=== PATIENT | female | born 1945 | race Caucasian/White ===

== ENCOUNTER 2023-02-04 08:45 | Inpatient (IN) | payer OTHER ==
[~2023-02-04] VITALS: Ht 157.5 cm; Wt 81.6 kg
[2023-02-04 08:45] VITALS: BP_SYST 158; PULSE 75; RESP 22; TEMP 98.3; O2SAT 98
[2023-02-04 09:52] LABS: BASOPHILS % (AUTO) 0.3 % (0.0-2.0); EOSINOPHILS # (AUTO) 0.1 K/uL (0.0-0.4); EOSINOPHILS % (AUTO) 0.8 % (0.0-4.0); HEMATOCRIT 38.5 % (36-48); HEMOGLOBIN 12.3 g/dL (12.0-16.0); LYMPHOCYTES # (AUTO) 2.9 K/uL (1.0-5.5); MEAN CORPUSCULAR HEMOGLOBIN 31 pg (27-31); MEAN CORPUSCULAR HGB CONC 32 % (32-36); MEAN CORPUSCULAR VOLUME 95 fL (79.0-98.0); MONOCYTES # (AUTO) 1.1 K/uL (0.0-1.0); MONOCYTES % (AUTO) 9.9 % (1.7-9.3); NEUTROPHILS # (AUTO) 6.9 K/uL (1.8-7.7); PLATELET COUNT (AUTO) 309 K/uL (130-430); RED BLOOD CELL COUNT(AUTO) 4.04 MIL/uL (4.2-6.2); RED CELL DISTRIBUTION WIDTH 15.5 % (9.0-15.0)
[2023-02-04 10:24] LABS: BILIRUBIN,URINE NEGATIVE (NEGATIVE); CLARITY/URINE CLEAR (CLEAR); COLOR,URINE YELLOW (YELLOW); GLUCOSE,URINE 1+ (NEGATIVE); KETONES,URINE NEGATIVE (NEGATIVE); LEUKOCYTE ESTERASE ,URINE NEGATIVE (NEGATIVE); NITRITE, URINE NEGATIVE (NEGATIVE); PH,URINE 6.5 (5.0-8.0); PROTEIN URINE NEGATIVE (NEGATIVE); UROBILINOGEN,URINE 0.2 (0.2-1.0)
[2023-02-04 10:25] LABS: PROTHROMBIN TIME 10.5 SECS (9.5-12.5)
[2023-02-04 10:29] LABS: BLOOD, URINE TRACE (NEGATIVE)
[2023-02-04 10:32] LABS: ALANINE AMINOTRANSFERASE 19 U/L (12-78); ALBUMIN 3.3 g/dL (3.4-4.8); ANION GAP 9 (5-15); ASPARTATE AMINOTRANSFERASE 22 U/L (10-37); CALCIUM 9.3 mg/dL (8.4-11.0); CARBON DIOXIDE 25 mmol/L (23-29); CHLORIDE 100 mmol/L (98-107); CREATININE 1.13 mg/dL (0.55-1.30); GLUCOSE 233 mg/dL (74-106); POTASSIUM 4.3 mmol/L (3.5-5.1); SODIUM SERUM 134 mmol/L (136-145); TOTAL BILIRUBIN 0.5 mg/dL (0.0-1.0); TOTAL PROTEIN, SERUM 7.3 g/dL (6.4-8.3); UREA NITROGEN, BLOOD 22 mg/dL (8-21)
[2023-02-04 10:42] LABS: BILIRUBIN,DIRECT 0.1 mg/dL (0.0-0.3)
[2023-02-04] MEDS ORDERED: ENOXAPARIN SODIUM 80 MG/0.8 ML SYRINGE SUBCUT ONE (11:00)
[2023-02-04] MEDS ORDERED: ASPIRIN 81 MG TAB.CHEW PO ONE (11:00)
[2023-02-04 11:10] LABS: BACTERIA,URINE None Seen /HPF (None Seen); RBC,URINE 0-3 /HPF (0-3); WBC,URINE NONE SEEN /HPF (0-3)
[2023-02-04 12:55] LABS: INFLUENZA TYPE A Negative (NEGATIVE); INFLUENZA TYPE B NEGATIVE (NEGATIVE)
[2023-02-04] MEDS ORDERED: GLIP10TA21 PO (13:11)
[2023-02-04] MEDS ORDERED: METF-379 PO (13:11)
[2023-02-04] MEDS ORDERED: OLME40TA70 PO (13:11)
[2023-02-04] MEDS ORDERED: PIOG15TA8 PO (13:11)
[2023-02-04] MEDS ORDERED: CHOL125C7 (13:11)
[2023-02-04] MEDS ORDERED: ALLO300T2 PO (13:11)
[2023-02-04] MEDS ORDERED: METO50TA7 PO (13:11)
[2023-02-04] MEDS ORDERED: LIP40 PO (13:11)
[2023-02-04] MEDS ORDERED: OMEG-158 PO (13:14)
[2023-02-04] MEDS ORDERED: INSU100I58 SQ (13:14)
[2023-02-04] MEDS ORDERED: cefTRIAXone 1 GM IVPB PREMIX 50 ML IV ONE (13:45)
[2023-02-04] MEDS ORDERED: *LOVENOX0.75MG/KG Q12H/PHARMACY XX ONE (15:30)
[2023-02-04] MEDS: hydrALAZINE HCL 20 MG/ML VIAL IVP PRN (17:56)
[2023-02-04 20:00] VITALS: BP_SYST 168; PULSE 123; RESP 20; TEMP 101.3
[2023-02-04 20:30] VITALS: O2SAT 97
[2023-02-04] MEDS ORDERED: ACETAMINOPHEN 650 MG SUPP.RECT RC PRN (22:45)
[2023-02-04] MEDS ORDERED: SODIUM CHLORIDE 3% *HI-ALERT* 500 ML IV SCH (22:45)
[2023-02-04] MEDS: ENOXAPARIN SODIUM 60 MG/0.6 ML SYRINGE SUBCUT SCH (23:15)
[2023-02-04] MEDS: INSULIN LISPRO SLIDING SCALE 100 UNITS/ML, 3 ML VIAL (humaLOG) SUBCUT PRN (23:21)
[2023-02-04] MEDS ORDERED: SODIUM CHLORIDE 3% *HI-ALERT* 500 ML IV ONE (23:37)
[2023-02-05] VITALS (11 sets, daily range): BP systolic 141–189; PULSE 114–167; RESP 16–20; TEMP 97–99.8; O2SAT 93–99
[2023-02-05] MEDS: hydrALAZINE HCL 20 MG/ML VIAL IVP PRN ×2 (00:57→14:22)
[2023-02-05] MEDS: NACL 0.9% 1,000 ML IV SCH ×2 (01:40→15:51)
[2023-02-05 05:57] LABS: BASOPHILS # (AUTO) 0.1 K/uL (0.0-0.2); BASOPHILS % (AUTO) 0.5 % (0.0-2.0); HEMATOCRIT 44.1 % (36-48); HEMOGLOBIN 14.4 g/dL (12.0-16.0); LYMPHOCYTES # (AUTO) 1.3 K/uL (1.0-5.5); LYMPHOCYTES % (AUTO) 8.9 % (20.5-51.5); MEAN CORPUSCULAR HEMOGLOBIN 30 pg (27-31); MEAN CORPUSCULAR HGB CONC 33 % (32-36); MEAN CORPUSCULAR VOLUME 93 fL (79.0-98.0); MONOCYTES # (AUTO) 0.7 K/uL (0.0-1.0); MONOCYTES % (AUTO) 4.6 % (1.7-9.3); NEUTROPHILS # (AUTO) 12.3 K/uL (1.8-7.7); PLATELET COUNT (AUTO) 372 K/uL (130-430); RED BLOOD CELL COUNT(AUTO) 4.72 MIL/uL (4.2-6.2); RED CELL DISTRIBUTION WIDTH 15.3 % (9.0-15.0); WHITE BLOOD COUNT (AUTO) 14.3 K/uL (4.8-10.8)
[2023-02-05 06:33] LABS: ALANINE AMINOTRANSFERASE 20 U/L (12-78); ALBUMIN 3.6 g/dL (3.4-4.8); ANION GAP 18 (5-15); ASPARTATE AMINOTRANSFERASE 26 U/L (10-37); CARBON DIOXIDE 19 mmol/L (23-29); CHLORIDE 91 mmol/L (98-107); CREATININE 1.13 mg/dL (0.55-1.30); GLUCOSE 384 mg/dL (74-106); POTASSIUM 3.9 mmol/L (3.5-5.1); SODIUM SERUM 128 mmol/L (136-145); TOTAL BILIRUBIN 0.7 mg/dL (0.0-1.0); TOTAL PROTEIN, SERUM 8.5 g/dL (6.4-8.3); UREA NITROGEN, BLOOD 17 mg/dL (8-21)
[2023-02-05] MEDS: INSULIN LISPRO SLIDING SCALE 100 UNITS/ML, 3 ML VIAL (humaLOG) SUBCUT PRN ×4 (06:55→23:41)
[2023-02-05 08:13] LABS: THYROID STIMULATING HORMONE 2.66 uIu/mL (0.34-4.82)
[2023-02-05] MEDS: ENOXAPARIN SODIUM 60 MG/0.6 ML SYRINGE SUBCUT SCH ×2 (08:52→23:31)
[2023-02-05] MEDS: ASPIRIN 81 MG TABLET(ECOTRIN) PO SCH (08:52)
[2023-02-05] MEDS ORDERED: cefTRIAXone 1 GM IVPB PREMIX 50 ML IV SCH (09:00)
[2023-02-05] MEDS: PIPERACILLIN/TAZO 3.375/DEX-IS 50 ML IV SCH ×3 (11:45→23:31)
[2023-02-05] MEDS ORDERED: LORazepam 2 MG/ML VIAL IM ONE ×2 (12:15→12:30)
[2023-02-05] MEDS ORDERED: OLMESARTAN MEDOXOMIL 20 MG TABLET PO SCH (12:30)
[2023-02-05] MEDS ORDERED: LOSARTAN POTASSIUM 50 MG TABLET (COZAAR) PO ONE (15:00)
[2023-02-05] MEDS ORDERED: glipiZIDE XL 5 MG TAB ( GLUCOTROL XL) PO ONE (15:00)
[2023-02-05] MEDS ORDERED: TOLVAPTAN Non-Formulary 15 MG TABLET PO ONE (15:00)
[2023-02-05] MEDS ORDERED: ALLOPURINOL 300 MG TABLET (ZYLOPRIM) PO ONE (15:00)
[2023-02-05] MEDS ORDERED: ATORVASTATIN 20 MG TABLET PO ONE (15:00)
[2023-02-05 16:01] LABS: HEMATOCRIT 43.4 % (36-48); MEAN CORPUSCULAR HEMOGLOBIN 30 pg (27-31); MEAN CORPUSCULAR HGB CONC 32 % (32-36); MEAN CORPUSCULAR VOLUME 94 fL (79.0-98.0); PLATELET COUNT (AUTO) 376 K/uL (130-430); RED BLOOD CELL COUNT(AUTO) 4.62 MIL/uL (4.2-6.2); RED CELL DISTRIBUTION WIDTH 15.5 % (9.0-15.0)
[2023-02-05] MEDS: metFORMIN HCL 500 MG TABLET PO SCH (17:17)
[2023-02-05 17:28] LABS: BAND % (MANUAL) 0 % (0-6); BASOPHILS % (MANUAL) 0 % (0-2); EOSINOPHILS % (MANUAL) 0 % (0-7); LYMPHOCYTES % (MANUAL) 6 % (20-46); MONOCYTES % (MANUAL) 15 % (0-11)
[2023-02-05 17:29] LABS: ANISOCYTOSIS 1+; OVALOCYTES FEW; PLATELET ESTIMATE ADEQUATE (ADEQUATE); STOMATOCYTES FEW
[2023-02-05] MEDS: IPRATROPIUM/ALBUTEROL SULFATE 3 ML AMPUL.NEB (DUONEB) INH SCH (19:45)
[2023-02-06] VITALS (10 sets, daily range): BP systolic 119–155; PULSE 87–114; RESP 17–20; TEMP 97.6–98.9; O2SAT 92–97
[2023-02-06] MEDS: IPRATROPIUM/ALBUTEROL SULFATE 3 ML AMPUL.NEB (DUONEB) INH SCH ×4 (01:00→20:27)
[2023-02-06 01:08] LABS: ANION GAP 12 (5-15); CALCIUM 9.7 mg/dL (8.4-11.0); CARBON DIOXIDE 24 mmol/L (23-29); CHLORIDE 97 mmol/L (98-107); CREATININE 1.41 mg/dL (0.55-1.30); GLUCOSE 335 mg/dL (74-106); POTASSIUM 3.6 mmol/L (3.5-5.1); SODIUM SERUM 133 mmol/L (136-145); UREA NITROGEN, BLOOD 29 mg/dL (8-21)
[2023-02-06 01:27] LABS: ALANINE AMINOTRANSFERASE 19 U/L (12-78); ALBUMIN 3.3 g/dL (3.4-4.8); ASPARTATE AMINOTRANSFERASE 38 U/L (10-37); TOTAL BILIRUBIN 0.7 mg/dL (0.0-1.0); TOTAL PROTEIN, SERUM 7.7 g/dL (6.4-8.3)
[2023-02-06 06:12] LABS: BASOPHILS # (AUTO) 0.2 K/uL (0.0-0.2); HEMATOCRIT 38.5 % (36-48); HEMOGLOBIN 12.7 g/dL (12.0-16.0); LYMPHOCYTES % (AUTO) 17.7 % (20.5-51.5); MEAN CORPUSCULAR HEMOGLOBIN 31 pg (27-31); MEAN CORPUSCULAR HGB CONC 33 % (32-36); MEAN CORPUSCULAR VOLUME 93 fL (79.0-98.0); MONOCYTES # (AUTO) 2.4 K/uL (0.0-1.0); NEUTROPHILS # (AUTO) 11.5 K/uL (1.8-7.7); NEUTROPHILS % (AUTO) 67.3 % (40.0-70.0); PLATELET COUNT (AUTO) 340 K/uL (130-430); RED BLOOD CELL COUNT(AUTO) 4.15 MIL/uL (4.2-6.2); RED CELL DISTRIBUTION WIDTH 15.6 % (9.0-15.0); WHITE BLOOD COUNT (AUTO) 17.2 K/uL (4.8-10.8)
[2023-02-06] MEDS: NACL 0.9% 1,000 ML IV SCH ×3 (06:34→22:56)
[2023-02-06] MEDS: PIPERACILLIN/TAZO 3.375/DEX-IS 50 ML IV SCH ×4 (06:35→23:37)
[2023-02-06] MEDS: INSULIN LISPRO SLIDING SCALE 100 UNITS/ML, 3 ML VIAL (humaLOG) SUBCUT PRN ×4 (06:49→23:33)
[2023-02-06] MEDS: metFORMIN HCL 500 MG TABLET PO SCH ×2 (08:00→17:16)
[2023-02-06] MEDS: ENOXAPARIN SODIUM 60 MG/0.6 ML SYRINGE SUBCUT SCH ×2 (08:56→21:17)
[2023-02-06] MEDS: glipiZIDE XL 5 MG TAB ( GLUCOTROL XL) PO SCH (09:00)
[2023-02-06] MEDS: PIOGLITAZONE HCL 15 MG TABLET PO SCH (09:00)
[2023-02-06] MEDS: METOPROLOL SUCCINATE 50 MG TAB.SR.24H (TOPROL XL) PO SCH (09:00)
[2023-02-06] MEDS: ALLOPURINOL 300 MG TABLET (ZYLOPRIM) PO SCH (09:00)
[2023-02-06] MEDS: ASPIRIN 81 MG TABLET(ECOTRIN) PO SCH (09:00)
[2023-02-06] MEDS: LOSARTAN POTASSIUM 50 MG TABLET (COZAAR) PO SCH (09:00)
[2023-02-06] MEDS ORDERED: ATORVASTATIN 20 MG TABLET PO SCH (21:00)
[2023-02-07] VITALS (7 sets, daily range): BP systolic 149–150; PULSE 85–105; RESP 15–24; TEMP 97.5–98.5; O2SAT 95–99
[2023-02-07] MEDS: IPRATROPIUM/ALBUTEROL SULFATE 3 ML AMPUL.NEB (DUONEB) INH SCH ×3 (01:25→13:37)
[2023-02-07] MEDS: INSULIN LISPRO SLIDING SCALE 100 UNITS/ML, 3 ML VIAL (humaLOG) SUBCUT PRN ×2 (05:45→13:14)
[2023-02-07] MEDS: PIPERACILLIN/TAZO 3.375/DEX-IS 50 ML IV SCH ×2 (05:45→12:15)
[2023-02-07 08:40] LABS: BASOPHILS # (AUTO) 0.1 K/uL (0.0-0.2); BASOPHILS % (AUTO) 0.6 % (0.0-2.0); EOSINOPHILS # (AUTO) 0.2 K/uL (0.0-0.4); EOSINOPHILS % (AUTO) 1.3 % (0.0-4.0); HEMATOCRIT 37.6 % (36-48); HEMOGLOBIN 12.2 g/dL (12.0-16.0); LYMPHOCYTES # (AUTO) 3.9 K/uL (1.0-5.5); LYMPHOCYTES % (AUTO) 26.5 % (20.5-51.5); MEAN CORPUSCULAR HEMOGLOBIN 31 pg (27-31); MEAN CORPUSCULAR HGB CONC 32 % (32-36); MEAN CORPUSCULAR VOLUME 95 fL (79.0-98.0); MONOCYTES # (AUTO) 1.6 K/uL (0.0-1.0); NEUTROPHILS # (AUTO) 8.9 K/uL (1.8-7.7); PLATELET COUNT (AUTO) 336 K/uL (130-430); RED BLOOD CELL COUNT(AUTO) 3.97 MIL/uL (4.2-6.2); RED CELL DISTRIBUTION WIDTH 15.8 % (9.0-15.0); WHITE BLOOD COUNT (AUTO) 14.7 K/uL (4.8-10.8)
[2023-02-07 08:44] LABS: NEUTROPHILS % (AUTO) 60.6 % (40.0-70.0)
[2023-02-07 08:51] LABS: ANION GAP 9 (5-15); CALCIUM 9.2 mg/dL (8.4-11.0); CARBON DIOXIDE 25 mmol/L (23-29); CHLORIDE 102 mmol/L (98-107); CREATININE 1.28 mg/dL (0.55-1.30); GLUCOSE 248 mg/dL (74-106); POTASSIUM 3.1 mmol/L (3.5-5.1); SODIUM SERUM 136 mmol/L (136-145); UREA NITROGEN, BLOOD 26 mg/dL (8-21)
[2023-02-07 08:55] LABS: ALANINE AMINOTRANSFERASE 21 U/L (12-78); ALBUMIN 3.1 g/dL (3.4-4.8); ASPARTATE AMINOTRANSFERASE 24 U/L (10-37); TOTAL BILIRUBIN 0.9 mg/dL (0.0-1.0); TOTAL PROTEIN, SERUM 7.1 g/dL (6.4-8.3)
[2023-02-07] MEDS ORDERED: glipiZIDE XL 5 MG TAB ( GLUCOTROL XL) PO ONE (08:59)
[2023-02-07] MEDS: glipiZIDE XL 5 MG TAB ( GLUCOTROL XL) PO SCH (09:00)
[2023-02-07] MEDS ORDERED: Aspirin Ec PO (11:25)
[2023-02-07] MEDS: LOSARTAN POTASSIUM 50 MG TABLET (COZAAR) PO SCH (11:29)
[2023-02-07] MEDS: ASPIRIN 81 MG TABLET(ECOTRIN) PO SCH (11:29)
[2023-02-07] MEDS: ENOXAPARIN SODIUM 60 MG/0.6 ML SYRINGE SUBCUT SCH (11:29)
[2023-02-07] MEDS ORDERED: POTASSIUM CHLORIDE 20 MEQ TABLET.ER PO ONE (11:30)
[2023-02-07] MEDS ORDERED: AUG875 PO (11:31)
[2023-02-07] MEDS: PIOGLITAZONE HCL 15 MG TABLET PO SCH (11:31)
[2023-02-07] MEDS: ALLOPURINOL 300 MG TABLET (ZYLOPRIM) PO SCH (11:31)
[2023-02-07] MEDS: METOPROLOL SUCCINATE 50 MG TAB.SR.24H (TOPROL XL) PO SCH (11:31)
[2023-02-07] MEDS: metFORMIN HCL 500 MG TABLET PO SCH (11:32)
[2023-02-07] MEDS: NACL 0.9% 1,000 ML IV SCH (12:15)
== END 2023-02-07 17:15 | disposition home health service (06) | DRG 871 ==
LOC: SED 08:45 → STU 15:18
PROVIDERS: ADMIT Specialist; ATTEND Specialist
PROC: 4A00X4Z Measurement of Central Nervous Electrical Activity, External Approach (ICD-10-PCS; principal; 2023-02-06)
DX: A41.9 Sepsis, unspecified organism (principal); I63.40 Cerebral infarction due to embolism of unspecified cerebral artery; J18.9 Pneumonia, unspecified organism; E87.1 Hypo-osmolality and hyponatremia; G81.91 Hemiplegia, unspecified affecting right dominant side; I24.89 Other forms of acute ischemic heart disease; R47.01 Aphasia; E11.40 Type 2 diabetes mellitus with diabetic neuropathy, unspecified; E03.9 Hypothyroidism, unspecified; I10 Essential (primary) hypertension; Z20.822 Contact with and (suspected) exposure to COVID-19; E78.5 Hyperlipidemia, unspecified; E66.9 Obesity, unspecified; R29.704 NIHSS score 4; D72.829 Elevated white blood cell count, unspecified; Z79.899 Other long term (current) drug therapy; Z90.710 Acquired absence of both cervix and uterus; Z79.84 Long term (current) use of oral hypoglycemic drugs; Z79.4 Long term (current) use of insulin
CPT/HCPCS: 36415; 70450-TC; 70551; 71045; 76376; 80048; 80053; 80061; 80076; 81000; 81001; 81015; 82962; 83605; 83735; 83880; 84443; 84484; 85007; 85025; 85027; 85610-TC; 85730-TC; 87040; 92610-GN; 93005; 93306; 94640; 94760; 95816; 96365; 96372; 97110-GP; 97163-GP; 97530-GP; 99291; G0378; G0482; J0360; J0696; J1650; J2060; J2543; J3490

== ENCOUNTER 2023-04-15 14:50 | Inpatient (IN) | payer OTHER ==
[~2023-04-15] VITALS: Ht 162.6 cm; Wt 86.2 kg
[~2023-04-15 14:50] MED LIST: ALLO300T2 PO; AUG875 PO; Aspirin Ec PO; CHOL125C7; GLIP10TA21 PO; INSU100I58 SQ; LIP40 PO; METF-379 PO; METO50TA7 PO; OLME40TA70 PO; OMEG-158 PO; PIOG15TA8 PO
[2023-04-15 15:17] VITALS: BP_SYST 123; PULSE 86; RESP 18; TEMP 97.6; O2SAT 96
[2023-04-15 15:57] LABS: BILIRUBIN,URINE NEGATIVE (NEGATIVE); CLARITY/URINE SL CLOUDY (CLEAR); COLOR,URINE YELLOW (YELLOW); GLUCOSE,URINE NEGATIVE (NEGATIVE); KETONES,URINE NEGATIVE (NEGATIVE); LEUKOCYTE ESTERASE ,URINE 3+ (NEGATIVE); NITRITE, URINE POSITIVE (NEGATIVE); PROTEIN URINE NEGATIVE (NEGATIVE); UROBILINOGEN,URINE 0.2 (0.2-1.0)
[2023-04-15 16:00] LABS: BLOOD, URINE TRACE (NEGATIVE)
[2023-04-15 16:09] LABS: BACTERIA,URINE MANY /HPF (None Seen); MUCUS,URINE None Seen /LPF (None Seen); RBC,URINE 0-3 /HPF (0-3); WBC,URINE >100 /HPF (0-3)
[2023-04-15 16:11] LABS: BASOPHILS # (AUTO) 0.1 K/uL (0.0-0.2); BASOPHILS % (AUTO) 1.3 % (0.0-2.0); EOSINOPHILS # (AUTO) 0.4 K/uL (0.0-0.4); EOSINOPHILS % (AUTO) 3.9 % (0.0-4.0); HEMATOCRIT 36.8 % (36-48); HEMOGLOBIN 12.3 g/dL (12.0-16.0); LYMPHOCYTES # (AUTO) 4.3 K/uL (1.0-5.5); LYMPHOCYTES % (AUTO) 40.4 % (20.5-51.5); MEAN CORPUSCULAR HEMOGLOBIN 32 pg (27-31); MEAN CORPUSCULAR HGB CONC 33 % (32-36); MEAN CORPUSCULAR VOLUME 96 fL (79.0-98.0); MONOCYTES # (AUTO) 1.3 K/uL (0.0-1.0); MONOCYTES % (AUTO) 11.7 % (1.7-9.3); NEUTROPHILS # (AUTO) 4.6 K/uL (1.8-7.7); NEUTROPHILS % (AUTO) 42.7 % (40.0-70.0); PLATELET COUNT (AUTO) 299 K/uL (130-430); RED BLOOD CELL COUNT(AUTO) 3.83 MIL/uL (4.2-6.2); RED CELL DISTRIBUTION WIDTH 16.1 % (9.0-15.0); WHITE BLOOD COUNT (AUTO) 10.7 K/uL (4.8-10.8)
[2023-04-15] MEDS ORDERED: INSU100V9 SQ (16:59)
[2023-04-15] MEDS ORDERED: LEVO100T9 PO (16:59)
[2023-04-15] MEDS ORDERED: NYST15CR36 TP (16:59)
[2023-04-15] MEDS ORDERED: AMLO10TA88 PO (16:59)
[2023-04-15] MEDS ORDERED: INSU100I28 (16:59)
[2023-04-15] MEDS ORDERED: NITR-85 PO (16:59)
[2023-04-15] MEDS ORDERED: ASPI-989 PO (17:02)
[2023-04-15] MEDS ORDERED: SEMA2PEN SUBQ (17:02)
[2023-04-15 17:39] LABS: ANION GAP 14 (5-15); CALCIUM 10.1 mg/dL (8.4-11.0); CARBON DIOXIDE 22 mmol/L (23-29); CHLORIDE 106 mmol/L (98-107); CREATININE 1.46 mg/dL (0.55-1.30); GLUCOSE 151 mg/dL (74-106); POTASSIUM 4.9 mmol/L (3.5-5.1); SODIUM SERUM 142 mmol/L (136-145); UREA NITROGEN, BLOOD 27 mg/dL (8-21)
[2023-04-15 17:44] LABS: ALANINE AMINOTRANSFERASE 23 U/L (12-78); ALBUMIN 3.8 g/dL (3.4-4.8); ASPARTATE AMINOTRANSFERASE 20 U/L (10-37); BILIRUBIN,DIRECT 0.1 mg/dL (0.0-0.3); TOTAL BILIRUBIN 0.5 mg/dL (0.0-1.0); TOTAL PROTEIN, SERUM 7.8 g/dL (6.4-8.3)
[2023-04-15] MEDS ORDERED: HYDROcodone/ACETAMIN 5-325 MG TAB (NORCO/ VICODIN) PO PRN (19:45)
[2023-04-15] MEDS ORDERED: HYDROcodone/ACETAMIN 10-325 MG TAB PO PRN (19:45)
[2023-04-15] MEDS ORDERED: ACETAMINOPHEN 325 MG TABLET PO PRN ×2 (19:45)
[2023-04-15] MEDS ORDERED: MORPHINE 2 MG/ML INJ. SYRINGE IVP PRN (19:45)
[2023-04-15] MEDS ORDERED: ONDANSETRON HCL 4 MG/2 ML VIAL IVP PRN (19:45)
[2023-04-15] MEDS ORDERED: ACETAMINOPHEN 500 MG TABLET ONE (19:48)
[2023-04-15] MEDS: ACETAMINOPHEN 500 MG TABLET PO ONE (19:58)
[2023-04-15] MEDS: MEROPENEM 1 GM IVPB PREMIX 50 ML IV ONE (19:59)
[2023-04-15] MEDS ORDERED: GLUCOSE (DEXTROSE) ORAL GEL -Adults PO PRN (20:00)
[2023-04-15] MEDS ORDERED: DEXTROSE 50% JECT 50 ML DISP.SYRIN IVP PRN (20:00)
[2023-04-15] MEDS: NACL 0.9% 1,000 ML IV ONE (20:04)
[2023-04-15 20:55] LABS: FREE T4 (FREE THYROXINE) 1.3 ng/dL (0.6-1.6); THYROID STIMULATING HORMONE 2.93 uIu/mL (0.34-4.82)
[2023-04-15] MEDS ORDERED: INSULIN REGULAR, HUMAN 10 UNITS/0.1 ML, 3 ML VIAL ONE (21:32)
[2023-04-15] MEDS: INSULIN REGULAR, HUMAN 100 UNITS/ML, 3 ML VIAL (humuLIN R) SUBCUT PRN (21:34)
[2023-04-15] MEDS: NACL 0.9% 1,000 ML IV SCH (22:40)
[2023-04-16] MEDS: MEROPENEM 1 GM IVPB PREMIX 50 ML IV SCH (04:44)
[2023-04-16 08:42] LABS: BASOPHILS % (AUTO) 0.2 % (0.0-2.0); EOSINOPHILS # (AUTO) 0.3 K/uL (0.0-0.4); EOSINOPHILS % (AUTO) 3.5 % (0.0-4.0); HEMOGLOBIN 11.4 g/dL (12.0-16.0); LYMPHOCYTES # (AUTO) 2.8 K/uL (1.0-5.5); LYMPHOCYTES % (AUTO) 33.3 % (20.5-51.5); MEAN CORPUSCULAR HEMOGLOBIN 32 pg (27-31); MEAN CORPUSCULAR HGB CONC 34 % (32-36); MEAN CORPUSCULAR VOLUME 95 fL (79.0-98.0); MONOCYTES # (AUTO) 1.2 K/uL (0.0-1.0); MONOCYTES % (AUTO) 13.8 % (1.7-9.3); NEUTROPHILS # (AUTO) 4.2 K/uL (1.8-7.7); NEUTROPHILS % (AUTO) 49.2 % (40.0-70.0); PLATELET COUNT (AUTO) 256 K/uL (130-430); RED BLOOD CELL COUNT(AUTO) 3.57 MIL/uL (4.2-6.2); RED CELL DISTRIBUTION WIDTH 16.4 % (9.0-15.0); WHITE BLOOD COUNT (AUTO) 8.5 K/uL (4.8-10.8)
[2023-04-16] MEDS ORDERED: METOPROLOL SUCCINATE 50 MG TAB.SR.24H (TOPROL XL) PO SCH (09:00)
[2023-04-16 09:10] LABS: ANION GAP 10 (5-15); CALCIUM 9.4 mg/dL (8.4-11.0); CARBON DIOXIDE 23 mmol/L (23-29); CHLORIDE 111 mmol/L (98-107); CREATININE 1.15 mg/dL (0.55-1.30); GLUCOSE 168 mg/dL (74-106); POTASSIUM 4.2 mmol/L (3.5-5.1); SODIUM SERUM 144 mmol/L (136-145); UREA NITROGEN, BLOOD 24 mg/dL (8-21)
[2023-04-16 09:11] LABS: ALANINE AMINOTRANSFERASE 21 U/L (12-78); ALBUMIN 3.2 g/dL (3.4-4.8); ASPARTATE AMINOTRANSFERASE 18 U/L (10-37); TOTAL BILIRUBIN 0.4 mg/dL (0.0-1.0); TOTAL PROTEIN, SERUM 6.8 g/dL (6.4-8.3)
[2023-04-16] MEDS: amLODIPine BESYLATE 10 MG TABLET PO SCH (10:19)
[2023-04-16] MEDS: LEVOTHYROXINE SODIUM 0.1 MG TABLET PO SCH (10:20)
[2023-04-16] MEDS: METOPROLOL SUCCINATE 50 MG TAB.SR.24H (TOPROL XL) PO SCH (10:21)
[2023-04-16] MEDS: ALLOPURINOL 300 MG TABLET (ZYLOPRIM) PO SCH (10:22)
[2023-04-16] MEDS: ATORVASTATIN 20 MG TABLET PO SCH (10:22)
[2023-04-16] MEDS ORDERED: PIOG15TA8 PO (12:07)
[2023-04-16] MEDS ORDERED: GLUCOSE (DEXTROSE) ORAL GEL -Adults PO PRN (15:00)
[2023-04-16] MEDS ORDERED: DEXTROSE 50% JECT 50 ML DISP.SYRIN IVP PRN (15:00)
[2023-04-16] MEDS: INSULIN REGULAR, HUMAN 100 UNITS/ML, 3 ML VIAL (humuLIN R) SUBCUT PRN (22:37)
[2023-04-17 01:10] VITALS: BP_SYST 159; PULSE 82; RESP 18; TEMP 97.8
[2023-04-17 01:11] VITALS: O2SAT 97
[2023-04-17 06:13] LABS: BASOPHILS # (AUTO) 0.1 K/uL (0.0-0.2); BASOPHILS % (AUTO) 1.2 % (0.0-2.0); EOSINOPHILS # (AUTO) 0.4 K/uL (0.0-0.4); EOSINOPHILS % (AUTO) 4.2 % (0.0-4.0); HEMATOCRIT 33.3 % (36-48); LYMPHOCYTES # (AUTO) 3.7 K/uL (1.0-5.5); LYMPHOCYTES % (AUTO) 42.3 % (20.5-51.5); MEAN CORPUSCULAR HEMOGLOBIN 31 pg (27-31); MEAN CORPUSCULAR HGB CONC 33 % (32-36); MEAN CORPUSCULAR VOLUME 95 fL (79.0-98.0); MONOCYTES # (AUTO) 1.2 K/uL (0.0-1.0); MONOCYTES % (AUTO) 13.3 % (1.7-9.3); NEUTROPHILS # (AUTO) 3.4 K/uL (1.8-7.7); PLATELET COUNT (AUTO) 269 K/uL (130-430); RED BLOOD CELL COUNT(AUTO) 3.53 MIL/uL (4.2-6.2); RED CELL DISTRIBUTION WIDTH 16.4 % (9.0-15.0); WHITE BLOOD COUNT (AUTO) 8.8 K/uL (4.8-10.8)
[2023-04-17 06:44] LABS: ALANINE AMINOTRANSFERASE 17 U/L (12-78); ALBUMIN 3.1 g/dL (3.4-4.8); ANION GAP 11 (5-15); ASPARTATE AMINOTRANSFERASE 17 U/L (10-37); CALCIUM 9.3 mg/dL (8.4-11.0); CARBON DIOXIDE 24 mmol/L (23-29); CHLORIDE 109 mmol/L (98-107); CREATININE 0.89 mg/dL (0.55-1.30); GLUCOSE 127 mg/dL (74-106); POTASSIUM 3.7 mmol/L (3.5-5.1); SODIUM SERUM 144 mmol/L (136-145); TOTAL BILIRUBIN 0.4 mg/dL (0.0-1.0); TOTAL PROTEIN, SERUM 6.7 g/dL (6.4-8.3); UREA NITROGEN, BLOOD 19 mg/dL (8-21)
[2023-04-17 08:00] VITALS: BP_SYST 117; PULSE 86; RESP 24; TEMP 97; O2SAT 96
[2023-04-17 11:33] VITALS: BP_SYST 133; PULSE 88; RESP 17; TEMP 97; O2SAT 96
[2023-04-17 15:33] LABS: BASOPHILS # (AUTO) 0.1 K/uL (0.0-0.2); BASOPHILS % (AUTO) 0.8 % (0.0-2.0); EOSINOPHILS # (AUTO) 0.3 K/uL (0.0-0.4); EOSINOPHILS % (AUTO) 3.6 % (0.0-4.0); HEMATOCRIT 33.7 % (36-48); HEMOGLOBIN 11.2 g/dL (12.0-16.0); LYMPHOCYTES # (AUTO) 3.2 K/uL (1.0-5.5); LYMPHOCYTES % (AUTO) 41.7 % (20.5-51.5); MEAN CORPUSCULAR HEMOGLOBIN 32 pg (27-31); MEAN CORPUSCULAR HGB CONC 33 % (32-36); MEAN CORPUSCULAR VOLUME 95 fL (79.0-98.0); MONOCYTES # (AUTO) 1.1 K/uL (0.0-1.0); NEUTROPHILS # (AUTO) 3.1 K/uL (1.8-7.7); NEUTROPHILS % (AUTO) 39.9 % (40.0-70.0); PLATELET COUNT (AUTO) 246 K/uL (130-430); RED BLOOD CELL COUNT(AUTO) 3.54 MIL/uL (4.2-6.2); RED CELL DISTRIBUTION WIDTH 16.2 % (9.0-15.0); WHITE BLOOD COUNT (AUTO) 7.8 K/uL (4.8-10.8)
[2023-04-17 15:49] LABS: ALANINE AMINOTRANSFERASE 20 U/L (12-78); ALBUMIN 3.1 g/dL (3.4-4.8); ANION GAP 10 (5-15); ASPARTATE AMINOTRANSFERASE 18 U/L (10-37); CALCIUM 9.3 mg/dL (8.4-11.0); CARBON DIOXIDE 24 mmol/L (23-29); CHLORIDE 108 mmol/L (98-107); CREATININE 1.29 mg/dL (0.55-1.30); GLUCOSE 189 mg/dL (74-106); POTASSIUM 4.3 mmol/L (3.5-5.1); SODIUM SERUM 142 mmol/L (136-145); TOTAL BILIRUBIN 0.3 mg/dL (0.0-1.0); TOTAL PROTEIN, SERUM 6.7 g/dL (6.4-8.3); UREA NITROGEN, BLOOD 19 mg/dL (8-21)
[2023-04-17 16:31] VITALS: BP_SYST 126; PULSE 81; RESP 16; TEMP 97.7; O2SAT 95
[2023-04-17 20:30] VITALS: BP_SYST 130; PULSE 82; RESP 20; TEMP 98.8; O2SAT 95
[2023-04-18] VITALS: BP_SYST 121; PULSE 86; RESP 18; TEMP 99; O2SAT 96
[2023-04-18 04:00] VITALS: BP_SYST 125; PULSE 82; RESP 18; TEMP 98.9; O2SAT 95
[2023-04-18 11:35] VITALS: BP_SYST 149; PULSE 78; RESP 16; TEMP 97.1; O2SAT 98
[2023-04-18] MEDS ORDERED: ASPI-1155 PO (12:04)
[2023-04-18 13:18] VITALS: BP_SYST 132; PULSE 83; RESP 18; TEMP 97.7; O2SAT 97
== END 2023-04-18 14:30 | disposition home health service (06) | DRG 758 ==
LOC: SED 14:50 → SMU 19:39
PROVIDERS: ADMIT Family Medicine; ATTEND Family Medicine
DX: N71.0 Acute inflammatory disease of uterus (principal); E87.20 Acidosis, unspecified; N39.0 Urinary tract infection, site not specified; Z16.20 Resistance to unspecified antibiotic; N17.9 Acute kidney failure, unspecified; E86.0 Dehydration; E66.9 Obesity, unspecified; E78.00 Pure hypercholesterolemia, unspecified; I10 Essential (primary) hypertension; Z88.8 Allergy status to other drugs, medicaments and biological substances; Z79.899 Other long term (current) drug therapy; Z79.4 Long term (current) use of insulin; Z68.32 Body mass index [BMI] 32.0-32.9, adult; Z79.82 Long term (current) use of aspirin; N18.9 Chronic kidney disease, unspecified; B96.1 Klebsiella pneumoniae [K. pneumoniae] as the cause of diseases classified elsewhere; E11.22 Type 2 diabetes mellitus with diabetic chronic kidney disease
CPT/HCPCS: 36415; 76770; 80048; 80053; 80076; 81000; 81001; 81015; 82948; 83037; 83605; 84439; 84443; 85025; 87040; 87086; 96365; 97112-GP; 97116-GP; 97530-GP; 99285; J1815; J2185

== ENCOUNTER 2023-06-03 14:04 | Inpatient (IN) | payer OTHER ==
[~2023-06-03] VITALS: Ht 162.6 cm; Wt 90.7 kg
[~2023-06-03 14:04] MED LIST changes: +AMLO10TA88 PO; +ASPI-1155 PO; -AUG875 PO; -Aspirin Ec PO; -CHOL125C7; +INSU100I28; -INSU100I58 SQ; +INSU100V9 SQ; +LEVO100T9 PO; +NYST15CR36 TP; -OMEG-158 PO; +SEMA2PEN SUBQ
[2023-06-03 14:10] VITALS: BP_SYST 167; PULSE 85; RESP 18; TEMP 97.8; O2SAT 94
[2023-06-03 14:43] LABS: ANION GAP 8 (5-15); CALCIUM 9.7 mg/dL (8.4-11.0); CARBON DIOXIDE 27 mmol/L (23-29); CHLORIDE 102 mmol/L (98-107); CREATININE 1.22 mg/dL (0.55-1.30); GLUCOSE 285 mg/dL (74-106); POTASSIUM 4.5 mmol/L (3.5-5.1); SODIUM SERUM 137 mmol/L (136-145); UREA NITROGEN, BLOOD 22 mg/dL (8-21)
[2023-06-03 15:14] LABS: PROTHROMBIN TIME 10.4 SECS (9.5-12.5)
[2023-06-03 15:18] LABS: BASOPHILS # (AUTO) 0.1 K/uL (0.0-0.2); BASOPHILS % (AUTO) 0.8 % (0.0-2.0); EOSINOPHILS # (AUTO) 0.4 K/uL (0.0-0.4); EOSINOPHILS % (AUTO) 3.8 % (0.0-4.0); HEMOGLOBIN 11.9 g/dL (12.0-16.0); LYMPHOCYTES # (AUTO) 3.7 K/uL (1.0-5.5); LYMPHOCYTES % (AUTO) 35.6 % (20.5-51.5); MEAN CORPUSCULAR HEMOGLOBIN 31 pg (27-31); MEAN CORPUSCULAR HGB CONC 33 % (32-36); MEAN CORPUSCULAR VOLUME 94 fL (79.0-98.0); MONOCYTES # (AUTO) 0.9 K/uL (0.0-1.0); MONOCYTES % (AUTO) 8.9 % (1.7-9.3); NEUTROPHILS # (AUTO) 5.2 K/uL (1.8-7.7); NEUTROPHILS % (AUTO) 50.9 % (40.0-70.0); PLATELET COUNT (AUTO) 262 K/uL (130-430); RED BLOOD CELL COUNT(AUTO) 3.85 MIL/uL (4.2-6.2); RED CELL DISTRIBUTION WIDTH 15.6 % (9.0-15.0); WHITE BLOOD COUNT (AUTO) 10.3 K/uL (4.8-10.8)
[2023-06-03] MEDS ORDERED: INSU100I44 (16:37)
[2023-06-03] MEDS ORDERED: INSU100V38 (16:37)
[2023-06-03] MEDS: hydrALAZINE HCL 20 MG/ML VIAL IVP PRN (17:44)
[2023-06-03 20:01] LABS: BILIRUBIN,URINE NEGATIVE (NEGATIVE); CLARITY/URINE CLEAR (CLEAR); COLOR,URINE YELLOW (YELLOW); GLUCOSE,URINE NEGATIVE (NEGATIVE); KETONES,URINE NEGATIVE (NEGATIVE); LEUKOCYTE ESTERASE ,URINE 3+ (NEGATIVE); NITRITE, URINE POSITIVE (NEGATIVE); PROTEIN URINE 1+ (NEGATIVE); UROBILINOGEN,URINE 0.2 (0.2-1.0)
[2023-06-03 20:03] LABS: BLOOD, URINE TRACE (NEGATIVE)
[2023-06-03 20:53] LABS: BACTERIA,URINE MANY /HPF (None Seen); RBC,URINE >100 /HPF (0-3); WBC,URINE >100 /HPF (0-3)
[2023-06-03 22:31] VITALS: BP_SYST 174; PULSE 20; RESP 16; TEMP 97.5; O2SAT 99
[2023-06-04] MEDS: MEROPENEM 1 GM in NS 100 ML IV SCH (03:00)
[2023-06-04 04:31] LABS: BASOPHILS # (AUTO) 0.1 K/uL (0.0-0.2); EOSINOPHILS # (AUTO) 0.3 K/uL (0.0-0.4); EOSINOPHILS % (AUTO) 2.7 % (0.0-4.0); HEMATOCRIT 38.4 % (36-48); HEMOGLOBIN 12.7 g/dL (12.0-16.0); LYMPHOCYTES # (AUTO) 4.9 K/uL (1.0-5.5); LYMPHOCYTES % (AUTO) 40.5 % (20.5-51.5); MEAN CORPUSCULAR HEMOGLOBIN 31 pg (27-31); MEAN CORPUSCULAR HGB CONC 33 % (32-36); MEAN CORPUSCULAR VOLUME 93 fL (79.0-98.0); MONOCYTES # (AUTO) 1.3 K/uL (0.0-1.0); MONOCYTES % (AUTO) 10.4 % (1.7-9.3); NEUTROPHILS # (AUTO) 5.5 K/uL (1.8-7.7); NEUTROPHILS % (AUTO) 45.4 % (40.0-70.0); PLATELET COUNT (AUTO) 292 K/uL (130-430); RED BLOOD CELL COUNT(AUTO) 4.12 MIL/uL (4.2-6.2); RED CELL DISTRIBUTION WIDTH 15.7 % (9.0-15.0); WHITE BLOOD COUNT (AUTO) 12.1 K/uL (4.8-10.8)
[2023-06-04 04:54] LABS: ANION GAP 13 (5-15); CALCIUM 9.5 mg/dL (8.4-11.0); CARBON DIOXIDE 25 mmol/L (23-29); CHLORIDE 104 mmol/L (98-107); CREATININE 1.08 mg/dL (0.55-1.30); GLUCOSE 173 mg/dL (74-106); POTASSIUM 3.6 mmol/L (3.5-5.1); SODIUM SERUM 142 mmol/L (136-145); UREA NITROGEN, BLOOD 19 mg/dL (8-21)
[2023-06-04] MEDS: MEROPENEM 500 MG VIAL IV ONE (05:13)
[2023-06-04 08:00] VITALS: BP_SYST 136; PULSE 118; RESP 20; TEMP 98.2; O2SAT 98
[2023-06-04 09:00] VITALS: O2SAT 98
[2023-06-04] MEDS ORDERED: GLUCOSE (DEXTROSE) ORAL GEL -Adults PO PRN (09:45)
[2023-06-04] MEDS ORDERED: DEXTROSE 50% JECT 50 ML DISP.SYRIN IVP PRN (09:45)
[2023-06-04] MEDS: ASPIRIN 81 MG TAB.CHEW PO ONE (09:47)
[2023-06-04] MEDS: LEVOTHYROXINE SODIUM 0.1 MG TABLET PO ONE (09:48)
[2023-06-04] MEDS: ATORVASTATIN 20 MG TABLET PO ONE (09:48)
[2023-06-04] MEDS: INSULIN REGULAR, HUMAN 100 UNITS/ML, 3 ML VIAL (humuLIN R) SUBCUT PRN (11:12)
[2023-06-04 12:55] VITALS: BP_SYST 147; PULSE 102; RESP 16; TEMP 97.5; O2SAT 98
[2023-06-04] MEDS ORDERED: ALLO100T PO (13:34)
[2023-06-04] MEDS ORDERED: ASPI-1155 PO (13:34)
[2023-06-04] MEDS ORDERED: INSU100I26 SQ (13:47)
[2023-06-04] MEDS ORDERED: INSU100V SUBCUT (13:47)
[2023-06-04 16:00] VITALS: BP_SYST 167; PULSE 90; RESP 16; TEMP 97.5; O2SAT 99
[2023-06-04 20:20] VITALS: BP_SYST 134; PULSE 108; RESP 18; TEMP 98.4; O2SAT 98
[2023-06-05 02:17] VITALS: BP_SYST 135; PULSE 106; RESP 19; TEMP 97.9; O2SAT 95
[2023-06-05 05:46] LABS: BASOPHILS # (AUTO) 0.1 K/uL (0.0-0.2); BASOPHILS % (AUTO) 1.1 % (0.0-2.0); EOSINOPHILS # (AUTO) 0.3 K/uL (0.0-0.4); EOSINOPHILS % (AUTO) 2.4 % (0.0-4.0); HEMATOCRIT 38.8 % (36-48); HEMOGLOBIN 12.8 g/dL (12.0-16.0); LYMPHOCYTES # (AUTO) 4.9 K/uL (1.0-5.5); LYMPHOCYTES % (AUTO) 40.8 % (20.5-51.5); MEAN CORPUSCULAR HEMOGLOBIN 31 pg (27-31); MEAN CORPUSCULAR HGB CONC 33 % (32-36); MEAN CORPUSCULAR VOLUME 93 fL (79.0-98.0); MONOCYTES # (AUTO) 1.4 K/uL (0.0-1.0); MONOCYTES % (AUTO) 11.4 % (1.7-9.3); NEUTROPHILS # (AUTO) 5.3 K/uL (1.8-7.7); NEUTROPHILS % (AUTO) 44.3 % (40.0-70.0); PLATELET COUNT (AUTO) 307 K/uL (130-430); RED BLOOD CELL COUNT(AUTO) 4.17 MIL/uL (4.2-6.2); RED CELL DISTRIBUTION WIDTH 15.4 % (9.0-15.0)
[2023-06-05 06:20] LABS: ALANINE AMINOTRANSFERASE 13 U/L (12-78); ALBUMIN 3.3 g/dL (3.4-4.8); ANION GAP 11 (5-15); ASPARTATE AMINOTRANSFERASE 11 U/L (10-37); CALCIUM 9.3 mg/dL (8.4-11.0); CARBON DIOXIDE 24 mmol/L (23-29); CHLORIDE 102 mmol/L (98-107); CREATININE 1.22 mg/dL (0.55-1.30); GLUCOSE 172 mg/dL (74-106); POTASSIUM 3.7 mmol/L (3.5-5.1); SODIUM SERUM 137 mmol/L (136-145); TOTAL BILIRUBIN 0.4 mg/dL (0.0-1.0); TOTAL PROTEIN, SERUM 7.2 g/dL (6.4-8.3); UREA NITROGEN, BLOOD 25 mg/dL (8-21)
[2023-06-05] MEDS: LEVOTHYROXINE SODIUM 0.1 MG TABLET PO SCH (06:22)
[2023-06-05 08:00] VITALS: BP_SYST 166; PULSE 104; RESP 18; TEMP 97.7; O2SAT 98
[2023-06-05] MEDS: ASPIRIN 81 MG TAB.CHEW PO SCH (08:56)
[2023-06-05] MEDS: ALLOPURINOL 100 MG TABLET (ZYLOPRIM) PO SCH (08:56)
[2023-06-05] MEDS: ATORVASTATIN 20 MG TABLET PO SCH (08:57)
[2023-06-05] MEDS ORDERED: ALLOPURINOL 300 MG TABLET (ZYLOPRIM) PO SCH (09:00)
[2023-06-05 11:05] VITALS: BP_SYST 130; PULSE 105; RESP 17; TEMP 97.8; O2SAT 94
[2023-06-05 16:18] VITALS: BP_SYST 129; PULSE 103; RESP 16; TEMP 97.6; O2SAT 94
[2023-06-05 21:05] VITALS: BP_SYST 139; PULSE 97; RESP 19; TEMP 97.4; O2SAT 100
[2023-06-05 23:46] VITALS: BP_SYST 136; PULSE 95; RESP 16; TEMP 96.8; O2SAT 95
[2023-06-06 08:00] VITALS: BP_SYST 153; PULSE 98; RESP 18; TEMP 97; O2SAT 95; O2SAT 97
[2023-06-06 10:39] LABS: PROTHROMBIN TIME 10.4 SECS (9.5-12.5)
[2023-06-06 12:00] VITALS: BP_SYST 144; PULSE 85; RESP 18; TEMP 98.6; O2SAT 96
[2023-06-06 15:36] VITALS: BP_SYST 142; PULSE 88; RESP 18; TEMP 98.5; O2SAT 99
[2023-06-06 16:00] VITALS: BP_SYST 138; PULSE 79; RESP 18; TEMP 98; O2SAT 97
== END 2023-06-06 16:55 | disposition home or self-care (01) | DRG 689 ==
LOC: SED 14:04 → SMU 16:52
PROVIDERS: ADMIT Specialist; ATTEND Specialist
PROC: 02HV33Z Insertion of Infusion Device into Superior Vena Cava, Percutaneous Approach (ICD-10-PCS; principal; 2023-06-06)
DX: N39.0 Urinary tract infection, site not specified (principal); G92.9 Unspecified toxic encephalopathy; Z16.12 Extended spectrum beta lactamase (ESBL) resistance; R65.10 Systemic inflammatory response syndrome (SIRS) of non-infectious origin without acute organ dysfunction; G45.9 Transient cerebral ischemic attack, unspecified; E03.9 Hypothyroidism, unspecified; I10 Essential (primary) hypertension; E11.65 Type 2 diabetes mellitus with hyperglycemia; F03.A0 Unspecified dementia, mild, without behavioral disturbance, psychotic disturbance, mood disturbance, and anxiety; E78.5 Hyperlipidemia, unspecified; Z88.8 Allergy status to other drugs, medicaments and biological substances; Z79.899 Other long term (current) drug therapy; Z86.73 Personal history of transient ischemic attack (TIA), and cerebral infarction without residual deficits
CPT/HCPCS: 36415; 70450-TC; 70551; 71045; 76770; 80048; 80053; 81000; 81001; 81015; 82948; 83037; 84484; 85025; 85610; 85730; 87086; 87186; 93005; 95816; 96374; 97110-GP; 97112-GP; 97116-GP; 97530-GP; 99285; J0360; J2185

== ENCOUNTER 2023-07-10 19:28 | Inpatient (IN) | payer OTHER ==
[~2023-07-10] VITALS: Ht 157.5 cm; Wt 90.7 kg
[~2023-07-10 19:28] MED LIST changes: +ALLO100T PO; -ALLO300T2 PO; +INSU100I26 SQ; -INSU100I28; +INSU100V SUBCUT; -INSU100V9 SQ; -NYST15CR36 TP; -SEMA2PEN SUBQ
[2023-07-10 19:40] VITALS: BP_SYST 183; PULSE 78; RESP 16; TEMP 97.9; O2SAT 97
[2023-07-10] MEDS: MORPHINE 4 MG INJ. 4 MG/ML VIAL IVP ONE (23:08)
[2023-07-10] MEDS ORDERED: ONDANSETRON HCL 4 MG/2 ML VIAL IVP PRN (23:15)
[2023-07-10] MEDS ORDERED: ACETAMINOPHEN 325 MG TABLET PO PRN (23:15)
[2023-07-10] MEDS ORDERED: ALBUTEROL SULFATE 0.083% 2.5 MG/3 ML VIAL.NEB INH PRN (23:15)
[2023-07-10] MEDS ORDERED: HYDROcodone/ACETAMIN 5-325 MG TAB (NORCO/ VICODIN) PO PRN (23:15)
[2023-07-10] MEDS ORDERED: hydrALAZINE HCL 20 MG/ML VIAL IVP SCH (23:15)
[2023-07-10 23:21] VITALS: BP_SYST 183; PULSE 76; O2SAT 97
[2023-07-10 23:42] LABS: BASOPHILS # (AUTO) 0.2 K/uL (0.0-0.2); BASOPHILS % (AUTO) 1.4 % (0.0-2.0); EOSINOPHILS # (AUTO) 0.1 K/uL (0.0-0.4); EOSINOPHILS % (AUTO) 0.4 % (0.0-4.0); HEMOGLOBIN 11.7 g/dL (12.0-16.0); LYMPHOCYTES # (AUTO) 3.8 K/uL (1.0-5.5); LYMPHOCYTES % (AUTO) 25.9 % (20.5-51.5); MEAN CORPUSCULAR HEMOGLOBIN 30 pg (27-31); MEAN CORPUSCULAR HGB CONC 33 % (32-36); MEAN CORPUSCULAR VOLUME 93 fL (79.0-98.0); MONOCYTES # (AUTO) 1.2 K/uL (0.0-1.0); MONOCYTES % (AUTO) 8.3 % (1.7-9.3); NEUTROPHILS # (AUTO) 9.4 K/uL (1.8-7.7); PLATELET COUNT (AUTO) 269 K/uL (130-430); RED BLOOD CELL COUNT(AUTO) 3.85 MIL/uL (4.2-6.2); RED CELL DISTRIBUTION WIDTH 15.8 % (9.0-15.0); WHITE BLOOD COUNT (AUTO) 14.7 K/uL (4.8-10.8)
[2023-07-10] MEDS: amLODIPine BESYLATE 10 MG TABLET PO SCH (23:55)
[2023-07-11 00:28] LABS: ANION GAP 15 (5-15); CALCIUM 9.4 mg/dL (8.4-11.0); CARBON DIOXIDE 20 mmol/L (23-29); CHLORIDE 106 mmol/L (98-107); CREATININE 1.13 mg/dL (0.55-1.30); GLUCOSE 222 mg/dL (74-106); POTASSIUM 4.6 mmol/L (3.5-5.1); SODIUM SERUM 141 mmol/L (136-145); UREA NITROGEN, BLOOD 18 mg/dL (8-21)
[2023-07-11] MEDS: MORPHINE 2 MG/ML INJ. SYRINGE IVP PRN (03:46)
[2023-07-11 05:54] LABS: BASOPHILS # (AUTO) 0.1 K/uL (0.0-0.2); BASOPHILS % (AUTO) 0.9 % (0.0-2.0); EOSINOPHILS # (AUTO) 0.2 K/uL (0.0-0.4); EOSINOPHILS % (AUTO) 1.8 % (0.0-4.0); HEMOGLOBIN 10.8 g/dL (12.0-16.0); LYMPHOCYTES % (AUTO) 31.6 % (20.5-51.5); MEAN CORPUSCULAR HEMOGLOBIN 30 pg (27-31); MEAN CORPUSCULAR HGB CONC 33 % (32-36); MEAN CORPUSCULAR VOLUME 93 fL (79.0-98.0); MONOCYTES # (AUTO) 1.4 K/uL (0.0-1.0); MONOCYTES % (AUTO) 11.3 % (1.7-9.3); NEUTROPHILS # (AUTO) 6.9 K/uL (1.8-7.7); NEUTROPHILS % (AUTO) 54.4 % (40.0-70.0); PLATELET COUNT (AUTO) 283 K/uL (130-430); RED BLOOD CELL COUNT(AUTO) 3.56 MIL/uL (4.2-6.2); RED CELL DISTRIBUTION WIDTH 15.5 % (9.0-15.0); WHITE BLOOD COUNT (AUTO) 12.7 K/uL (4.8-10.8)
[2023-07-11 06:14] LABS: ALANINE AMINOTRANSFERASE 17 U/L (12-78); ALBUMIN 2.9 g/dL (3.4-4.8); ANION GAP 13 (5-15); ASPARTATE AMINOTRANSFERASE 16 U/L (10-37); CALCIUM 8.9 mg/dL (8.4-11.0); CARBON DIOXIDE 24 mmol/L (23-29); CHLORIDE 107 mmol/L (98-107); CREATININE 1.03 mg/dL (0.55-1.30); GLUCOSE 174 mg/dL (74-106); POTASSIUM 4.3 mmol/L (3.5-5.1); SODIUM SERUM 144 mmol/L (136-145); TOTAL BILIRUBIN 0.4 mg/dL (0.0-1.0); TOTAL PROTEIN, SERUM 6.8 g/dL (6.4-8.3); UREA NITROGEN, BLOOD 14 mg/dL (8-21)
[2023-07-11] MEDS ORDERED: LEVOTHYROXINE SODIUM 0.1 MG TABLET PO SCH ×2 (07:30)
[2023-07-11] MEDS ORDERED: METOPROLOL SUCCINATE 50 MG TAB.SR.24H (TOPROL XL) PO SCH (09:00)
[2023-07-11] MEDS ORDERED: ATORVASTATIN 20 MG TABLET PO SCH (09:00)
[2023-07-11] MEDS: LEVOTHYROXINE SODIUM 0.1 MG TABLET PO SCH (09:58)
[2023-07-11] MEDS: ATORVASTATIN 20 MG TABLET PO SCH (09:58)
[2023-07-11] MEDS: METOPROLOL SUCCINATE 50 MG TAB.SR.24H (TOPROL XL) PO SCH (09:58)
[2023-07-11] MEDS: MORPHINE 4 MG INJ. 4 MG/ML VIAL ONE (15:19)
[2023-07-11 16:32] VITALS: O2SAT 98
[2023-07-11] MEDS: MORPHINE 4 MG INJ. 4 MG/ML VIAL IVP PRN (16:33)
[2023-07-11 17:40] VITALS: BP_SYST 147; PULSE 75; RESP 18; TEMP 98.2
[2023-07-11] MEDS: INSULIN REGULAR, HUMAN 100 UNITS/ML, 3 ML VIAL (humuLIN R) SUBCUT PRN (20:31)
[2023-07-12 00:48] VITALS: BP_SYST 151; PULSE 89; RESP 16; TEMP 99.1
[2023-07-12 06:56] LABS: BASOPHILS # (AUTO) 0.2 K/uL (0.0-0.2); BASOPHILS % (AUTO) 1.2 % (0.0-2.0); EOSINOPHILS # (AUTO) 0.3 K/uL (0.0-0.4); EOSINOPHILS % (AUTO) 2.3 % (0.0-4.0); HEMATOCRIT 31.8 % (36-48); HEMOGLOBIN 10.5 g/dL (12.0-16.0); LYMPHOCYTES # (AUTO) 4.4 K/uL (1.0-5.5); LYMPHOCYTES % (AUTO) 35.1 % (20.5-51.5); MEAN CORPUSCULAR HEMOGLOBIN 31 pg (27-31); MEAN CORPUSCULAR HGB CONC 33 % (32-36); MEAN CORPUSCULAR VOLUME 93 fL (79.0-98.0); MONOCYTES # (AUTO) 1.4 K/uL (0.0-1.0); MONOCYTES % (AUTO) 10.9 % (1.7-9.3); NEUTROPHILS # (AUTO) 6.4 K/uL (1.8-7.7); NEUTROPHILS % (AUTO) 50.5 % (40.0-70.0); PLATELET COUNT (AUTO) 283 K/uL (130-430); RED BLOOD CELL COUNT(AUTO) 3.44 MIL/uL (4.2-6.2); RED CELL DISTRIBUTION WIDTH 15.5 % (9.0-15.0); WHITE BLOOD COUNT (AUTO) 12.6 K/uL (4.8-10.8)
[2023-07-12 07:15] LABS: ALANINE AMINOTRANSFERASE 15 U/L (12-78); ALBUMIN 2.8 g/dL (3.4-4.8); ANION GAP 11 (5-15); ASPARTATE AMINOTRANSFERASE 10 U/L (10-37); CALCIUM 8.7 mg/dL (8.4-11.0); CARBON DIOXIDE 24 mmol/L (23-29); CHLORIDE 106 mmol/L (98-107); CREATININE 1.05 mg/dL (0.55-1.30); GLUCOSE 198 mg/dL (74-106); POTASSIUM 4.3 mmol/L (3.5-5.1); SODIUM SERUM 141 mmol/L (136-145); TOTAL BILIRUBIN 0.4 mg/dL (0.0-1.0); TOTAL PROTEIN, SERUM 6.7 g/dL (6.4-8.3); UREA NITROGEN, BLOOD 19 mg/dL (8-21)
[2023-07-12 08:15] VITALS: BP_SYST 151; PULSE 87; RESP 20; TEMP 98; O2SAT 95
[2023-07-12] MEDS ORDERED: ceFAZolin SODIUM 1 GM VIAL ONE (08:21)
[2023-07-12] MEDS: ACETAMINOPHEN I.V. 1000 MG 100 ML IV ONE ×2 (09:45→10:40)
[2023-07-12] MEDS ORDERED: ONDANSETRON HCL 4 MG/2 ML VIAL IVP PRN (09:45)
[2023-07-12] MEDS ORDERED: HYDROmorphone 1 MG/ML INJ. CARTRIDGE IVP PRN (09:45)
[2023-07-12] MEDS ORDERED: hydrALAZINE HCL 20 MG/ML VIAL IVP PRN (09:45)
[2023-07-12] MEDS ORDERED: NALOXONE HCL 0.4 MG/ML AMP (NARCAN) IVP PRN ×2 (09:45→10:45)
[2023-07-12] MEDS ORDERED: METOCLOPRAMIDE HCL 10 MG/2 ML VIAL IVP PRN (09:45)
[2023-07-12] MEDS ORDERED: MORPHINE 4 MG INJ. 4 MG/ML VIAL IVP PRN (09:45)
[2023-07-12] MEDS ORDERED: oxyCODONE HCL 5 MG TABLET PO PRN (10:45)
[2023-07-12 12:15] VITALS: BP_SYST 128; PULSE 80; RESP 16; TEMP 97.7; O2SAT 95
[2023-07-12] MEDS: CEFAZOLIN 2 GM IVPB PREMIX 50 ML IV SCH (14:23)
[2023-07-12 15:48] VITALS: BP_SYST 120; PULSE 69; RESP 15; TEMP 97.7; O2SAT 98
[2023-07-12 15:52] VITALS: O2SAT 96
[2023-07-12 20:00] VITALS: BP_SYST 145; PULSE 90; RESP 18; TEMP 96.2; O2SAT 96
[2023-07-12] MEDS: INSULIN GLARGINE 100 UNITS/ML, 10 ML VIAL SUBCUT SCH (22:56)
[2023-07-12] MEDS: HYDROcodone/ACETAMIN 5-325 MG TAB (NORCO/ VICODIN) PO PRN (23:05)
[2023-07-13 00:35] VITALS: BP_SYST 149; PULSE 80; RESP 18; TEMP 97.8; O2SAT 96
[2023-07-13 06:36] LABS: BASOPHILS % (AUTO) 0.2 % (0.0-2.0); HEMATOCRIT 28.9 % (36-48); HEMOGLOBIN 9.6 g/dL (12.0-16.0); LYMPHOCYTES # (AUTO) 2.6 K/uL (1.0-5.5); LYMPHOCYTES % (AUTO) 17.6 % (20.5-51.5); MEAN CORPUSCULAR HEMOGLOBIN 31 pg (27-31); MEAN CORPUSCULAR HGB CONC 33 % (32-36); MEAN CORPUSCULAR VOLUME 93 fL (79.0-98.0); MONOCYTES # (AUTO) 1.5 K/uL (0.0-1.0); MONOCYTES % (AUTO) 10.2 % (1.7-9.3); NEUTROPHILS # (AUTO) 10.5 K/uL (1.8-7.7); PLATELET COUNT (AUTO) 252 K/uL (130-430); RED CELL DISTRIBUTION WIDTH 15.6 % (9.0-15.0); WHITE BLOOD COUNT (AUTO) 14.6 K/uL (4.8-10.8)
[2023-07-13 07:11] LABS: ALANINE AMINOTRANSFERASE 8 U/L (12-78); ALBUMIN 2.6 g/dL (3.4-4.8); ANION GAP 11 (5-15); ASPARTATE AMINOTRANSFERASE 14 U/L (10-37); CALCIUM 8.7 mg/dL (8.4-11.0); CARBON DIOXIDE 24 mmol/L (23-29); CHLORIDE 104 mmol/L (98-107); CREATININE 1.34 mg/dL (0.55-1.30); GLUCOSE 247 mg/dL (74-106); POTASSIUM 4.7 mmol/L (3.5-5.1); SODIUM SERUM 139 mmol/L (136-145); TOTAL BILIRUBIN 0.3 mg/dL (0.0-1.0); TOTAL PROTEIN, SERUM 6.4 g/dL (6.4-8.3); UREA NITROGEN, BLOOD 29 mg/dL (8-21)
[2023-07-13 08:20] VITALS: BP_SYST 136; PULSE 72; RESP 18; TEMP 96.8; O2SAT 97
[2023-07-13 09:00] VITALS: O2SAT 97
[2023-07-13] MEDS: ASPIRIN 81 MG TABLET(ECOTRIN) PO SCH (09:18)
[2023-07-13 10:59] VITALS: BP_SYST 122; PULSE 87; RESP 18; TEMP 97.3; O2SAT 95
[2023-07-13 15:17] VITALS: BP_SYST 139; PULSE 86; RESP 18; TEMP 97.8; O2SAT 95
[2023-07-13 17:03] LABS: BILIRUBIN,URINE NEGATIVE (NEGATIVE); CLARITY/URINE SL CLOUDY (CLEAR); COLOR,URINE YELLOW (YELLOW); GLUCOSE,URINE 3+ (NEGATIVE); KETONES,URINE TRACE (NEGATIVE); LEUKOCYTE ESTERASE ,URINE 1+ (NEGATIVE); NITRITE, URINE NEGATIVE (NEGATIVE); PROTEIN URINE TRACE (NEGATIVE); UROBILINOGEN,URINE 0.2 (0.2-1.0)
[2023-07-13 17:12] LABS: BLOOD, URINE TRACE (NEGATIVE)
[2023-07-13 17:33] LABS: WBC,URINE 80-100 /HPF (0-3)
[2023-07-13 17:34] LABS: BACTERIA,URINE None Seen /HPF (None Seen)
[2023-07-13 17:35] LABS: MUCUS,URINE 1+ /LPF (None Seen); YEAST,URINE Moderate /HPF (None Seen)
[2023-07-13] MEDS: INSULIN GLARGINE 100 UNITS/ML, 10 ML VIAL SUBCUT SCH (20:11)
[2023-07-14] VITALS (10 sets, daily range): BP systolic 125–178; PULSE 82–105; RESP 16–19; TEMP 96.8–99.1; O2SAT 95–97
[2023-07-14] MEDS: hydrALAZINE HCL 20 MG/ML VIAL IVP SCH (00:02)
[2023-07-14 05:42] LABS: BASOPHILS # (AUTO) 0.1 K/uL (0.0-0.2); BASOPHILS % (AUTO) 0.8 % (0.0-2.0); EOSINOPHILS # (AUTO) 0.2 K/uL (0.0-0.4); EOSINOPHILS % (AUTO) 1.2 % (0.0-4.0); HEMATOCRIT 28.1 % (36-48); HEMOGLOBIN 9.4 g/dL (12.0-16.0); LYMPHOCYTES # (AUTO) 4.4 K/uL (1.0-5.5); LYMPHOCYTES % (AUTO) 30.3 % (20.5-51.5); MEAN CORPUSCULAR HEMOGLOBIN 31 pg (27-31); MEAN CORPUSCULAR HGB CONC 34 % (32-36); MEAN CORPUSCULAR VOLUME 92 fL (79.0-98.0); MONOCYTES # (AUTO) 1.6 K/uL (0.0-1.0); NEUTROPHILS # (AUTO) 8.3 K/uL (1.8-7.7); NEUTROPHILS % (AUTO) 56.7 % (40.0-70.0); PLATELET COUNT (AUTO) 284 K/uL (130-430); RED BLOOD CELL COUNT(AUTO) 3.05 MIL/uL (4.2-6.2); RED CELL DISTRIBUTION WIDTH 15.5 % (9.0-15.0)
[2023-07-14 06:17] LABS: ALBUMIN 2.7 g/dL (3.4-4.8); ANION GAP 14 (5-15); ASPARTATE AMINOTRANSFERASE 18 U/L (10-37); CALCIUM 8.4 mg/dL (8.4-11.0); CARBON DIOXIDE 21 mmol/L (23-29); CHLORIDE 104 mmol/L (98-107); CREATININE 1.22 mg/dL (0.55-1.30); GLUCOSE 260 mg/dL (74-106); POTASSIUM 3.8 mmol/L (3.5-5.1); SODIUM SERUM 139 mmol/L (136-145); TOTAL PROTEIN, SERUM 6.7 g/dL (6.4-8.3); UREA NITROGEN, BLOOD 28 mg/dL (8-21)
[2023-07-14 07:50] LABS: WHITE BLOOD COUNT (AUTO) 14.6 K/uL (4.8-10.8)
[2023-07-14 07:54] LABS: ALANINE AMINOTRANSFERASE 12 U/L (12-78)
[2023-07-14 07:57] LABS: TOTAL BILIRUBIN 0.5 mg/dL (0.0-1.0)
[2023-07-14] MEDS: HYDROcodone/ACETAMIN 10-325 MG TAB PO PRN (11:48)
[2023-07-15] VITALS: BP_SYST 133; PULSE 100; RESP 16; TEMP 98.4; O2SAT 97
[2023-07-15] MEDS ORDERED: ASA81 PO (08:31)
[2023-07-15 08:35] VITALS: BP_SYST 148; PULSE 94; RESP 18; TEMP 97.8; O2SAT 97
[2023-07-15 11:34] VITALS: BP_SYST 158; PULSE 87; RESP 16; TEMP 96.7; O2SAT 97
[2023-07-15] MEDS ORDERED: MILK OF MAGNESIA 30 ML UDC PO PRN (11:45)
[2023-07-15 14:21] VITALS: BP_SYST 148; PULSE 88; RESP 18; TEMP 97.8; O2SAT 97
== END 2023-07-15 14:45 | DRG 493 ==
LOC: SED 19:28 → SMU 23:04
PROVIDERS: ADMIT Family Medicine; ATTEND Family Medicine
PROC: 0QSG06Z Reposition Right Tibia with Intramedullary Internal Fixation Device, Open Approach (ICD-10-PCS; principal; 2020-07-11)
DX: S82.241A Displaced spiral fracture of shaft of right tibia, initial encounter for closed fracture (principal); E44.0 Moderate protein-calorie malnutrition; I10 Essential (primary) hypertension; E11.9 Type 2 diabetes mellitus without complications; E66.01 Morbid (severe) obesity due to excess calories; Y93.89 Activity, other specified; Y92.89 Other specified places as the place of occurrence of the external cause; Y99.8 Other external cause status; Z86.73 Personal history of transient ischemic attack (TIA), and cerebral infarction without residual deficits; Z90.710 Acquired absence of both cervix and uterus; Z68.36 Body mass index [BMI] 36.0-36.9, adult; W19.XXXA Unspecified fall, initial encounter; Z79.82 Long term (current) use of aspirin; Z79.84 Long term (current) use of oral hypoglycemic drugs; Z79.4 Long term (current) use of insulin; Z79.899 Other long term (current) drug therapy; E78.5 Hyperlipidemia, unspecified
CPT/HCPCS: 36415; 70450-TC; 71045; 73564; 73590; 76000; 80048; 80053; 81000; 81001; 81015; 82948; 83037; 85025; 86886; 86900; 86901; 87086; 93005; 94070; 94760; 96374; 97110-GP; 97116-GP; 97530-GP; 99285; C1713; C1769; J0131; J0360; J0690; J1100; J1815; J2270; J2405; J2704; J3010; J3490; J7120